=== PATIENT | female | born 1940 | race Caucasian/White ===

== ENCOUNTER → 2019-08-31 | Outpatient (CLI) | payer MEDICARE ==
--- NOTE | 2019-08-31 10:34 | Diagnostic Imaging Report ---
INDICATION: Lower back pain. Fall. Scoliosis. COMPARISON: None FINDINGS: Frontal and lateral radiographic views of the lumbar spine were obtained. There is severe levoscoliotic deformity epicentered at the L1-L2 level. As a result, evaluation of the vertebral body heights on the lateral views is poor. Compression fracture cannot be excluded. Evaluation of the static alignment on the lateral views also suggests grade 2 anterolisthesis at the L5-S1 level. Additionally, there are multilevel degenerative changes. No unexpected radiopaque foreign bodies are seen. IMPRESSION: 1. 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 This does render evaluation of compression fracture inadequate. If there is concern for compression fracture, CT or MR is advised. 2. Apparent grade 2 anterolisthesis at L5-S1. Acuity of this is also indeterminate based on this exam. Correlation with cross-sectional imaging is advised. Dictated by: Dictated on workstation # [id number]
== END ==
LOC: RAD FS 09:49
PROVIDERS: ATTEND Nurse Practitioner Family
DX: M43.17 Spondylolisthesis, lumbosacral region (principal); M41.86 Other forms of scoliosis, lumbar region; W19.XXXA Unspecified fall, initial encounter
CPT/HCPCS: 72100

== ENCOUNTER → 2019-09-05 | Outpatient (CLI) | payer MEDICARE ==
--- NOTE | 2019-09-05 11:27 | Diagnostic Imaging Report ---
CLINICAL INDICATION: Patient fell on August 01. Patient has pain in lower back since. EXAM: Axial CT scan of the lumbar spine without contrast. Sagittal and coronal reformatted images are created. Auto Exposure Controls were utilized during the CT exam to meet ALARA standards for radiation dose reduction. COMPARISON: X-ray of the lumbar spine dated 08/31/2019. FINDINGS: There is no acute lumbar spine fracture. There is osteopenia. There is roughly 73 degrees of levo rotoscoliosis of the thoracolumbar spine with apex at the L1 level. There is at least moderate stenosis seen at the L3 and L4 levels. There is multilevel neural foramen narrowing related to scoliosis. There are hypertrophic spurs and facet arthropathy seen at multiple levels with associated varying moderate to severe loss of disc space height. There is moderate size hiatal hernia seen. There is mild atelectasis and/or scarring involving posterior aspects of both lung bases. IMPRESSION: 1: There is no acute fracture. There is osteopenia. 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 Dictated by: Dictated on workstation # [id number]
== END ==
LOC: RAD FS 10:06
PROVIDERS: ATTEND Family Medicine
DX: M47.816 Spondylosis without myelopathy or radiculopathy, lumbar region (principal); M81.0 Age-related osteoporosis without current pathological fracture; M85.80 Other specified disorders of bone density and structure, unspecified site
CPT/HCPCS: 72131